=== PATIENT | female | born 1970 | race Caucasian/White ===

== ENCOUNTER 2021-03-05 03:15 | Emergency (ER) | payer SELFPAY ==
[~2021-03-05] VITALS: Ht 167.6 cm; Wt 95.3 kg
[2021-03-05] MEDS ORDERED: CYCLOBENZAPRINE10 MG PO (03:56)
[2021-03-05] MEDS ORDERED: PREDNISONE20 M1 PO (03:56)
[2021-03-05] MEDS ORDERED: HYDROCODON-ACE1 EACH PO (03:57)
== END 2021-03-05 05:07 | disposition home or self-care (01) ==
LOC: ED 03:15
DX: G89.29 Other chronic pain (principal); M54.5 Low back pain; M62.830 Muscle spasm of back; Z98.890 Other specified postprocedural states

== ENCOUNTER 2021-05-09 00:05 | Emergency (ER) | payer OTHER ==
[~2021-05-09] VITALS: Ht 162.5 cm; Wt 83.9 kg
[~2021-05-09 00:05] MED LIST: CYCLOBENZAPRINE10 MG PO; HYDROCODON-ACE1 EACH PO; PREDNISONE20 M1 PO
[2021-05-09] MEDS ORDERED: SEPTDS PO (00:58)
== END 2021-05-09 01:04 | disposition home or self-care (01) ==
LOC: ED 00:05
DX: L98.9 Disorder of the skin and subcutaneous tissue, unspecified (principal); L03.221 Cellulitis of neck

== ENCOUNTER 2021-12-28 14:41 | Emergency (ER) | payer OTHER ==
[~2021-12-28] VITALS: Wt 88.0 kg
[~2021-12-28 14:41] MED LIST changes: +SEPTDS PO
== END 2021-12-28 15:28 | disposition home or self-care (01) ==
LOC: ED 14:41
DX: M65.321 Trigger finger, right index finger (principal); Z90.710 Acquired absence of both cervix and uterus; Z90.89 Acquired absence of other organs

== ENCOUNTER 2022-03-04 12:41 | Emergency (ER) | payer OTHER ==
[2022-03-04 15:15] LABS: BASO % 0.6 % (0.0-1.0); EOS # 0.2 10*3/uL (0.0-0.4); EOS % 3.3 % (1.0-4.0); HEMATOCRIT 41.2 % (37.0-47.0); LYMPH # 1.7 10*3/uL (1.3-4.4); LYMPH % 30.6 % (27.0-41.0); MEAN CELL VOLUME 89.4 fl (81.0-99.0); MEAN CORPUSCULAR HGB 31.2 pg (27.0-31.0); MEAN PLATELET VOLUME 12.3 fl (9.6-12.3); MONO # 0.3 10*3/uL (0.1-1.0); MONO % 4.6 % (3.0-9.0); NEUT # 3.3 10*3/uL (2.3-7.9); NEUT % 60.7 % (47.0-73.0); PLATELET COUNT AUTOMATED 151 10*3/uL (130-400); RED BLOOD COUNT 4.61 10*6/uL (4.10-5.10); RED CELL DISTRI WIDTH 12.3 % (0-14.5); WHITE BLOOD COUNT 5.4 10*3/uL (4.8-10.8)
[2022-03-04 15:34] LABS: ALKALINE PHOSPHATASE 86 U/L (45-117); BUN 11 mg/dl (7-24); CHLORIDE 101 mmol/L (98-107); CREATININE 0.75 mg/dL (0.55-1.02); LIPASE 106 U/L (73-393); POTASSIUM 3.3 mmol/L (3.5-5.1); SGOT/AST 34 IU/L (3-35); SGPT/ALT 52 U/L (12-78); SODIUM 133 mmol/L (136-145); TOTAL PROTEIN 8.2 gm/dL (6.4-8.2)
[2022-03-04 16:55] LABS: BILIRUBIN Negative (Negative); BLOOD Negative (Negative); CLARITY Clear (Clear); COLOR Yellow (Yellow); GLUCOSE Negative (Negative); KETONE Negative (Negative); LEUKO ESTERASE Negative (Negative); NITRITE Negative (Negative); SPECIFIC GRAVITY 1.015 (1.001-1.030)
[2022-03-04 17:23] LABS: BACTERIA 2+; WBC 0-2 wbc/hpf (0-5)
[2022-03-04 17:24] LABS: HYALINE CAST 0-2
[2022-03-04] MEDS ORDERED: PROTONIX40 MG PO (17:49)
[2022-03-04] MEDS ORDERED: PHENERGAN25 M3 PO (17:49)
== END 2022-03-04 17:55 | disposition home or self-care (01) ==
LOC: ED 12:41
PROVIDERS: Emergency Medicine
DX: K29.00 Acute gastritis without bleeding (principal); R11.2 Nausea with vomiting, unspecified; Z98.890 Other specified postprocedural states